=== PATIENT | female | born 1955 | race Caucasian/White ===

== ENCOUNTER → 2021-06-03 14:48 | Outpatient (CLI) | payer MEDICARE, OTHER, SELFPAY | PROVIDERS: Visit Provider Physician Assistant | DX: K04.7 Periapical abscess without sinus (principal) | CPT/HCPCS: 87070; 87075; 87076; 87077; 87186; 87205 ==

== ENCOUNTER → 2021-06-24 12:04 | Outpatient (CLI) | payer MEDICARE, OTHER, SELFPAY ==
[2021-06-24 18:43] LABS: Add Manual Diff / Slide Review NO; Basophils Absolute Auto 100 /uL (0-100); Basophils Percent Auto 0.7 % (0-2); Eosinophils Absolute Auto 200 /uL (0-450); Eosinophils Percent Auto 2.1 % (2-4); Hemoglobin 14.4 g/dL (12.0-16.0); Lymphocytes Absolute Auto 2900 /uL (1100-4500); Mean Corpuscular HGB Conc 32.7 % (30-36); Mean Corpuscular Hemoglobin 32.3 PG (26-34); Mean Corpuscular Volume 98.7 fL (80-100); Monocytes Absolute Auto 600 /uL (0-900); Monocytes Percent Auto 7.1 % (3-14); Neutrophils Absolute Auto 4500 /uL (1500-7000); Neutrophils Percent Auto 55.1 % (50-75); Platelet Count 275 X10^3/uL (150-400); Red Blood Cell Count 4.46 X10^6/uL (4.0-5.2); Red Cell Distribution Width 13.3 % (11.6-14.8); White Blood Cell Count 8.2 X10^3/uL (4.5-11.0)
[2021-06-24 18:53] LABS: HEMOLYSIS < 15 (0-50); Iron 110 ug/dL (37-170)
[2021-06-24 18:55] LABS: Alanine Aminotransferase 60 IU/L (<35); Albumin 4.1 g/dL (3.5-5.0); Albumin Globulin Ratio 1.6 (1.0-2.8); Alkaline Phosphatase 67 U/L (38-126); Aspartate Aminotransferase 49 IU/L (14-36); BUN Creatinine Ratio 25.5 (6-22); Bilirubin Total 0.5 mg/dL (0.2-1.3); Blood Urea Nitrogen 14 mg/dL (7-17); Calcium 10.5 mg/dL (8.4-10.2); Carbon Dioxide 27 mmol/L (22-32); Chloride 105 mmol/L (98-107); Estimated Glomerular Filt Rate > 60.0 mL/min (>60); Globulin 2.5 g/dL (1.7-4.1); Glucose 101 mg/dL (80-110); HEMOLYSIS < 15 (0-50); Potassium 4.2 mmol/L (3.4-5.1); Sodium 139 mmol/L (137-145); Total Protein 6.6 g/dL (6.3-8.2)
[2021-06-24 19:07] LABS: Vitamin D 25 Hydroxy (D3) 24.4 ng/mL (30.0-100.0)
[2021-06-24 19:09] LABS: Percent Iron Saturation 37 % (15-50); Total Iron Binding Capacity 297 ug/dL (265-497); Transferrin 270 mg/dL (206-381)
[2021-06-24 19:42] LABS: Vitamin B12 746 pg/mL (239-931)
== END ==
PROVIDERS: Visit Provider Physician Assistant
DX: R00.0 Tachycardia, unspecified (principal); R53.83 Other fatigue; E55.9 Vitamin D deficiency, unspecified
CPT/HCPCS: 80053; 82306; 82607; 83540; 83550; 84443; 85025

== ENCOUNTER → 2022-01-07 10:31 | Outpatient (CLI) | payer MEDICARE, OTHER, SELFPAY ==
[2022-01-07 18:49] LABS: Add Manual Diff / Slide Review NO; Basophils Absolute Auto 100 /uL (0-100); Basophils Percent Auto 0.7 % (0-2); Eosinophils Absolute Auto 100 /uL (0-450); Eosinophils Percent Auto 1.2 % (2-4); Hematocrit 45.8 % (36-46); Hemoglobin 15.4 g/dL (12.0-16.0); Lymphocytes Absolute Auto 1900 /uL (1100-4500); Lymphocytes Percent Auto 18.2 % (25-40); Mean Corpuscular HGB Conc 33.7 % (30-36); Mean Corpuscular Hemoglobin 32.1 PG (26-34); Mean Corpuscular Volume 95.3 fL (80-100); Monocytes Absolute Auto 600 /uL (0-900); Monocytes Percent Auto 6.2 % (3-14); Neutrophils Absolute Auto 7600 /uL (1500-7000); Neutrophils Percent Auto 73.7 % (50-75); Platelet Count 308 X10^3/uL (150-400); Red Blood Cell Count 4.81 X10^6/uL (4.0-5.2); Red Cell Distribution Width 13.1 % (11.6-14.8); White Blood Cell Count 10.3 X10^3/uL (4.5-11.0)
[2022-01-07 18:58] LABS: Alanine Aminotransferase 44 IU/L (<35); Albumin 4.7 g/dL (3.5-5.0); Albumin Globulin Ratio 1.7 (1.0-2.8); Alkaline Phosphatase 71 U/L (38-126); Aspartate Aminotransferase 36 IU/L (14-36); BUN Creatinine Ratio 24.6 (6-22); Bilirubin Total 0.6 mg/dL (0.2-1.3); Blood Urea Nitrogen 15 mg/dL (7-17); Calcium 10.4 mg/dL (8.4-10.2); Carbon Dioxide 29 mmol/L (22-32); Chloride 105 mmol/L (98-107); Cholesterol 188 mg/dL (140-199); Estimated Glomerular Filt Rate > 60.0 mL/min (>60); Gamma Glutamyl Transpeptidase 17 U/L (12-43); Globulin 2.8 g/dL (1.7-4.1); Glucose 115 mg/dL (80-110); HDL Cholesterol 92 mg/dL (40-60); HEMOLYSIS < 15 (0-50); LDL Cholesterol Calculated 75 mg/dL (<100); Potassium 4.4 mmol/L (3.4-5.1); Sodium 139 mmol/L (137-145); Total Protein 7.5 g/dL (6.3-8.2); Triglycerides 107 mg/dL (35-150)
[2022-01-07 20:09] LABS: Free T3, Triiodothyronine Free 3.38 pg/mL (2.77-5.27)
[2022-01-07 20:23] LABS: TSH w/ Reflex to FT4 1.47 uIU/mL (0.47-4.68)
[2022-01-08 08:36] LABS: Hemoglobin A1C% w Est Avg Glu 5.4 % (4.0-6.0)
== END ==
PROVIDERS: Visit Provider Physician Assistant Medical
DX: R00.0 Tachycardia, unspecified (principal); R74.8 Abnormal levels of other serum enzymes; I10 Essential (primary) hypertension
CPT/HCPCS: 80053; 80061; 82977; 83036; 84443; 84481; 85025

== ENCOUNTER → 2022-01-13 11:00 | Outpatient (CLI) | payer MEDICARE, OTHER, SELFPAY ==
[2022-01-13 20:51] LABS: Erythrocyte Sedimentation Rate 10 MM/HR (0-20)
[2022-01-13 20:53] LABS: C-Reactive Protein Quant < 0.5 mg/dL (<1.0)
== END ==
PROVIDERS: Visit Provider Physician Assistant Medical
DX: I10 Essential (primary) hypertension (principal); R51.9 Headache, unspecified; R74.8 Abnormal levels of other serum enzymes
CPT/HCPCS: 85651; 86140

== ENCOUNTER → 2022-01-16 11:36 | Outpatient (CLI) | payer MEDICARE, OTHER, SELFPAY ==
--- NOTE | 2022-01-16 11:38 | DI.CT.S_ITS ---
PROCEDURE: CT HEAD/BRAIN WO CON INDICATIONS: headache, fullness and dizziness TECHNIQUE: Noncontrast 4.5 mm thick angled axial sections acquired from the foramen magnum to the vertex, with coronal and sagittal reformats. For radiation dose reduction, the following was used: automated exposure control, adjustment of mA and/or kV according to patient size. COMPARISON: None. FINDINGS: Image quality: Excellent. CSF spaces: Basal cisterns are patent. No extra-axial fluid collections. Ventricles are normal in size and shape. Brain: No midline shift. No intracranial masses or hemorrhage. High-white matter interface is normal. Moderate cerebral and cerebellar volume loss with multifocal white matter chronic ischemic change noted. Skull and face: Calvarium and visualized facial bones are intact, without suspicious lesions. Sinuses: Visualized sinuses and mastoids are clear. Incidental pneumatization of the right petrous apex IMPRESSION: Mild atrophy and multifocal chronic ischemic change without intracranial hemorrhage or mass effect. Approved by: Wilton Dasilva M.D. on 01/16/2022 at 12:28
== END ==
PROVIDERS: Referring Provider Physician Assistant Medical; Visit Provider Physician Assistant Medical
DX: R51.9 Headache, unspecified (principal); R68.89 Other general symptoms and signs; R53.83 Other fatigue
CPT/HCPCS: 70450

== ENCOUNTER → 2022-12-24 13:05 | Outpatient (CLI) | payer MEDICARE, OTHER, SELFPAY ==
[2022-12-24 19:25] LABS: Add Manual Diff / Slide Review NO; Basophils Absolute Auto 0 /uL (0-100); Basophils Percent Auto 0.5 % (0-2); Eosinophils Absolute Auto 200 /uL (0-450); Hematocrit 42.3 % (36-46); Hemoglobin 14.2 g/dL (12.0-16.0); Lymphocytes Absolute Auto 2800 /uL (1100-4500); Lymphocytes Percent Auto 39.1 % (25-40); Mean Corpuscular HGB Conc 33.5 % (30-36); Mean Corpuscular Hemoglobin 31.8 PG (26-34); Mean Corpuscular Volume 94.8 fL (80-100); Monocytes Absolute Auto 600 /uL (0-900); Neutrophils Absolute Auto 3500 /uL (1500-7000); Neutrophils Percent Auto 49.4 % (50-75); Platelet Count 270 X10^3/uL (150-400); Red Blood Cell Count 4.46 X10^6/uL (4.0-5.2); Red Cell Distribution Width 12.8 % (11.6-14.8); White Blood Cell Count 7.1 X10^3/uL (4.5-11.0)
[2022-12-24 19:42] LABS: Alanine Aminotransferase 27 IU/L (<35); Albumin 3.9 g/dL (3.5-5.0); Albumin Globulin Ratio 1.4 (1.0-2.8); Alkaline Phosphatase 72 U/L (38-126); Aspartate Aminotransferase 27 IU/L (14-36); BUN Creatinine Ratio 22.8 (6-22); Bilirubin Total 0.6 mg/dL (0.2-1.3); Blood Urea Nitrogen 13 mg/dL (7-17); Calcium 9.7 mg/dL (8.4-10.2); Carbon Dioxide 27 mmol/L (22-32); Chloride 102 mmol/L (98-107); Estimated Glomerular Filt Rate > 60 mL/min (>60); Globulin 2.8 g/dL (1.7-4.1); Glucose 87 mg/dL (80-110); HEMOLYSIS < 15 (0-50); Potassium 3.8 mmol/L (3.4-5.1); Sodium 139 mmol/L (137-145); Total Protein 6.7 g/dL (6.3-8.2)
[2022-12-25 05:31] LABS: Thyroid Stimulating Hormone 1.31 uIU/mL (0.47-4.68)
[2022-12-25 07:32] LABS: Free T4, Direct Thyroxine 1.46 ng/dL (0.78-2.19)
[2022-12-26 10:20] LABS: Calcium 9.6 mg/dL (8.7-10.3); Parathyroid Hormone, Intact 42 pg/mL (15-65)
== END ==
PROVIDERS: PCP Physician Assistant; Visit Provider Physician Assistant
DX: C43.9 Malignant melanoma of skin, unspecified (principal); R00.0 Tachycardia, unspecified; E83.52 Hypercalcemia; R74.8 Abnormal levels of other serum enzymes; Z53.20 Procedure and treatment not carried out because of patient's decision for unspecified reasons
CPT/HCPCS: 80053; 82310; 83970; 84439; 84443; 85025

== ENCOUNTER → 2023-01-05 11:44 | Outpatient (CLI) | payer MEDICARE, OTHER, SELFPAY ==
--- NOTE | 2023-01-05 11:46 | DI.MG.S_ITS ---
BILATERAL DIGITAL SCREENING MAMMOGRAM 3D/2D WITH CAD: 01/05/2023 CLINICAL: Routine screening. Family history of breast cancer. Comparison is made to exam dated: 02/16/2008 mammogram - [facility]. Both breasts are heterogeneously dense, which may obscure small masses (category c / 51-75% glandular tissue). Current study was also evaluated with a Computer Aided Detection (CAD) system. No significant masses, calcifications, or other findings are seen in either breast. There has been no significant interval change. IMPRESSION: NEGATIVE There is no mammographic evidence of malignancy. A 1 year screening mammogram is recommended. Based on the Tyrer Cuzick model (a risk assessment model) the patient's lifetime risk is 10.0% and her 10 year risk is 5.6%. According to the ACR, ACS, and NCCN guidelines, an annual breast MRI exam along with mammogram is recommended if the patient's lifetime risk is 20% or greater. This exam was interpreted at Station ID: [id number]. NOTE: For mammograms, a report in lay terms will be sent to the patient. Approximately 15% of breast malignancies will not be visualized mammographically. In the management of a palpable breast mass, a negative mammogram must not discourage biopsy of a clinically suspicious lesion. Electronically Signed By: Elis núñez/natali:01/05/2023 12:53:09 letter sent: Normal Exam ACR BI-RADS Category 1: Negative [id number]
== END ==
PROVIDERS: PCP Physician Assistant; Referring Provider Physician Assistant; Visit Provider Physician Assistant
DX: Z12.31 Encounter for screening mammogram for malignant neoplasm of breast (principal); Z13.820 Encounter for screening for osteoporosis; M85.851 Other specified disorders of bone density and structure, right thigh; Z78.0 Asymptomatic menopausal state; Z80.3 Family history of malignant neoplasm of breast; E83.52 Hypercalcemia
CPT/HCPCS: 77063; 77067; 77080

== ENCOUNTER → 2023-01-07 10:31 | Outpatient (CLI) | payer MEDICARE, OTHER, SELFPAY ==
[2023-01-07 20:13] LABS: Cholesterol 269 mg/dL (140-199); HDL Cholesterol 83 mg/dL (40-60); LDL Cholesterol Calculated 158 mg/dL (<100); Triglycerides 139 mg/dL (35-150)
== END ==
PROVIDERS: PCP Physician Assistant; Visit Provider Physician Assistant
DX: I10 Essential (primary) hypertension (principal); E83.52 Hypercalcemia; R74.8 Abnormal levels of other serum enzymes; Z53.20 Procedure and treatment not carried out because of patient's decision for unspecified reasons
CPT/HCPCS: 80061

== ENCOUNTER → 2023-04-21 08:56 | Outpatient (CLI) | payer MEDICARE, OTHER, SELFPAY ==
[2023-04-21 19:52] LABS: Cholesterol 171 mg/dL (140-199); HDL Cholesterol 85 mg/dL (40-60); LDL Cholesterol Calculated 72 mg/dL (<100); Triglycerides 71 mg/dL (35-150)
== END ==
PROVIDERS: PCP Physician Assistant; Visit Provider Physician Assistant
DX: E78.5 Hyperlipidemia, unspecified (principal); M85.80 Other specified disorders of bone density and structure, unspecified site
CPT/HCPCS: 80061

== ENCOUNTER → 2023-09-07 11:25 | Outpatient (CLI) | payer MEDICARE, OTHER, SELFPAY ==
[2023-09-07 19:28] LABS: Add Manual Diff / Slide Review NO; Basophils Absolute Auto 0 /uL (0-100); Basophils Percent Auto 0.6 % (0-2); Eosinophils Absolute Auto 100 /uL (0-450); Eosinophils Percent Auto 2.1 % (2-4); Hematocrit 41.6 % (36-46); Hemoglobin 14.3 g/dL (12.0-16.0); Lymphocytes Absolute Auto 2500 /uL (1100-4500); Lymphocytes Percent Auto 34.5 % (25-40); Mean Corpuscular HGB Conc 34.4 % (30-36); Mean Corpuscular Hemoglobin 32.8 PG (26-34); Mean Corpuscular Volume 95.3 fL (80-100); Monocytes Absolute Auto 500 /uL (0-900); Monocytes Percent Auto 6.9 % (3-14); Neutrophils Absolute Auto 4000 /uL (1500-7000); Neutrophils Percent Auto 55.9 % (50-75); Platelet Count 248 X10^3/uL (150-400); Red Blood Cell Count 4.37 X10^6/uL (4.0-5.2); Red Cell Distribution Width 13.5 % (11.6-14.8); White Blood Cell Count 7.1 X10^3/uL (4.5-11.0)
[2023-09-07 19:29] LABS: Alanine Aminotransferase 70 IU/L (<35); Albumin 4.3 g/dL (3.5-5.0); Albumin Globulin Ratio 1.7 (1.0-2.8); Alkaline Phosphatase 61 U/L (38-126); Aspartate Aminotransferase 49 IU/L (14-36); Bilirubin Total 0.5 mg/dL (0.2-1.3); Bilirubin Unconjugated 0.4 mg/dL (0.0-1.1); Globulin 2.6 g/dL (1.7-4.1); HEMOLYSIS < 15 (0-50); Total Protein 6.9 g/dL (6.3-8.2)
[2023-09-07 20:35] LABS: Folate > 20.0 ng/mL (2.76-20.0); Vitamin B12 828 pg/mL (239-931)
== END ==
PROVIDERS: PCP Family Medicine; Visit Provider Family Medicine
DX: R42 Dizziness and giddiness (principal); R20.0 Anesthesia of skin; Z78.9 Other specified health status
CPT/HCPCS: 80076; 82607; 82746; 85025; 85610

== ENCOUNTER 2023-11-04 13:53 | Emergency (ER) | payer MEDICARE, OTHER, SELFPAY ==
[2023-11-04 13:58] VITALS: BP 126/64; PULSE 78; RESP 14; TEMP 36.8; O2SAT 98; BMI 24.0
--- NOTE | 2023-11-04 15:54 | ED.SKABFB ---
HPI - Skin/Abscess/Foreign Bdy <Funmilayo Metzger PA-C - Last Filed: 11/04/23 15:59> General Chief complaint: Skin/Abscess/Foreign Body Stated complaint: foreign object in rt ear Time Seen by Provider: 11/04/23 14:21 Source: patient Mode of arrival: Ambulatory History of Present Illness HPI narrative: Patient is a 68-year-old female who presents due to concern for foreign body in her right ear. She reports yesterday morning she was using a Q-tip, not deep inside the ear, when she pulled it out she noticed the cotton at the end of the Q-tip was gone. She went to the clinic on [facility] where they attempted to irrigate the ear but did not get any foreign body return. She presents today due to continued foreign body sensation in the right ear. She is shared the Q-tip is in there. She denies any fever or drainage from the ear. Related Data Previous Rx's Medication Instructions Recorded atorvastatin 10 mg tablet 10 mg PO DAILY #30 tabs 01/15/23 diazepam 10 mg tablet 10 mg PO DAILY PRN anxiety 180 06/21/23 days #10 tabs propranolol 20 mg tablet See Rx Instructions PO .Qd PRN 06/22/23 palpitations #30 tabs gabapentin 100 mg capsule 100 mg PO TID PRN Facial numbness 09/21/23 #180 caps amlodipine 2.5 mg tablet 2.5 mg PO DAILY take every day for 10/25/23 blood pressure even if BP is no #90 tabs Allergies Allergy/AdvReac Type Severity Reaction Status Date / Time No Known Drug Allergies Allergy Verified 09/10/23 14:35 Review of Systems <Funmilayo Metzger PA-C - Last Filed: 11/04/23 15:59> Review of Systems ROS Unobtainable: All systems reviewed & are unremarkable except as noted in HPI and below Patient History <Funmilayo Metzger PA-C - Last Filed: 11/04/23 15:59> Medical History Alcohol use Cervical stenosis of spinal canal Abnormal brain MRI Palpitations Osteoporosis screening Hypercalcemia Statin declined Skin cancer screening Social History Smoking Status: Never smoker Smoking Status: Never smoker alcohol intake frequency: 0-2 drinks per day Substance Use Type: marijuana Exam <ДМИТРИЙ Juares Last Filed: 11/04/23 15:59> Narrative Exam Narrative: GENERAL: 68 year old patient appears stated age. Well-developed patient, in no distress. NEURO: AOx3. HEAD: Atraumatic. Normocephalic. EYES: Pupils equal round and reactive. Extraocular motions intact. No scleral icterus. No injection or drainage. ENT: Nose without bleeding or purulent drainage. Right TM intact, pearly burnett, trace dried flaky skin, questionable small white area along the anterior edge, deep in the ear. Throat without erythema, tonsillar hypertrophy or exudate. Airway patent. RESPIRATORY: No distress. EXTREMITIES: No edema or joint tenderness. SKIN: No rash or erythema of visible areas Initial Vital Signs Initial Vital Signs: Vital Signs Temperature 98.2 F 11/04/23 13:58 Pulse Rate 78 11/04/23 13:58 Respiratory Rate 14 11/04/23 13:58 Blood Pressure 126/64 11/04/23 13:58 Pulse Oximetry 98 11/04/23 13:58 Oxygen Delivery Method Room Air 11/04/23 13:58 <Gustavo Mcgowan DO - Last Filed: 11/04/23 17:26> Initial Vital Signs Initial Vital Signs: Vital Signs Temperature 98.2 F 11/04/23 13:58 Pulse Rate 78 11/04/23 13:58 Respiratory Rate 14 11/04/23 13:58 Blood Pressure 126/64 11/04/23 13:58 Pulse Oximetry 98 11/04/23 13:58 Oxygen Delivery Method Room Air 11/04/23 13:58 Course <Funmilayo Metzger PA-C - Last Filed: 11/04/23 15:59> Vital Signs Vital signs: Vital Signs - 8 hr 11/04/23 13:58 Temperature 98.2 F Pulse Rate 78 Respiratory Rate 14 Blood Pressure 126/64 Pulse Oximetry 98 Oxygen Delivery Method Room Air <Gustavo Mcgowan DO - Last Filed: 11/04/23 17:26> Vital Signs Vital signs: Vital Signs - 8 hr 11/04/23 13:58 Temperature 98.2 F Pulse Rate 78 Respiratory Rate 14 Blood Pressure 126/64 Pulse Oximetry 98 Oxygen Delivery Method Room Air MDM - Skin/Abscess/Foreign Bdy <Funmilayo Metzger PA-C - Last Filed: 11/04/23 15:59> MDM Narrative Medical decision making narrative: Multiple etiologies for patient's symptoms considered including, but not limited to: Foreign body in right ear, foreign body sensation without retained foreign body, ear infection, otitis externa I asked Dr. Mcgowan to come and assess the patient's ear as well; he does not see any evidence of foreign body and questions if the white area is foreign body or just skin tissue, either way it was too deep for us to retrieve with the tools we have. Described this to the patient and her . Advised that they follow up with ENT if they wanted definitive diagnosis or if the sensation continues. I discussed that sometimes you can continue to have a strange sensation in your ear when it has been irritated and inflamed, such as after the irrigation use clinic and then multiple exams today. There is no evidence of acute otitis media or otitis externa. The TM is intact. There is no external swelling or erythema. Patient's symptoms improved over duration of stay with above-stated therapies. Findings and discharge diagnosis discussed with patient/family followed by verbalization of understanding Return precautions discussed with patient/family whom verbalize understanding of diagnosis and plan Discharge Plan Departure Patient Disposition: Home Clinical Impression: Foreign body in right ear Qualifiers: Encounter type: initial encounter Qualified Code(s): T16.1XXA - Foreign body in right ear, initial encounter Instructions: DI for Removal of Foreign Body From Ear Activity Restrictions/Additional Instructions: * we were unable to identify a foreign body in your right ear. We would recommend he follow up with the ear nose and throat doctor if you continue to have this sensation that there is something in your ear as they can use their more specialized equipment to look. Their contact information is noted below. It is worth calling today as sometimes they have last minute openings they can fit you in 2. *What to do: *Please continue to take your regular medications as directed. [ ] New medication prescriptions sent to your pharmacy: [ ] [ ] New medication written as a paper prescription [x ] No new medications given *Please follow up with your primary care provider in 2-3 days, call for an appointment. Let them know you were seen in the Emergency Department and that we ask that you be seen in follow up. We will electronically transmit a record of today's note if your PCP is in our system *If you do not have a primary care provider please contact the [facility] Resource line at [phone]. They will ask some questions about your medical history and help get you set up with a doctor in the community. *Return to Emergency Department if you should have any new, worsening or concerning symptoms, such as [fever greater than 101 F, shaking chills, worsening pain, persistent vomiting or other concerning symptoms]. Prescriptions: No Action diazepam 10 mg tablet 10 mg PO DAILY PRN (Reason: anxiety) 180 Days Qty: 10 0RF propranolol 20 mg tablet See Rx Instructions PO .Qd PRN (Reason: palpitations) Qty: 30 3RF Rx Instructions: 1/2 or 1 whole tablet orally QD PRN; gabapentin 100 mg capsule 100 mg PO TID PRN (Reason: Facial numbness) Qty: 180 6RF amlodipine 2.5 mg tablet 2.5 mg PO DAILY Qty: 90 1RF atorvastatin 10 mg tablet 10 mg PO DAILY Qty: 30 11RF Referrals: rEos Eaton MD [Physician] - Regi Salgaod MD [Primary Care Provider] - Stand Alone Forms: Patient Portal/API ED Sign-out <Gusatvo Mcgowan, - Last Filed: 11/04/23 17:26> [facility]: Dr Mcgowan Co-Sign Statement: I was available for consultation during this patient's emergency department visit. This chart is signed by myself for administrative purposes only. I did not have direct contact with this patient during this visit. They were seen independently by the [facility].
== END 2023-11-04 15:21 | disposition home or self-care (01) ==
PROVIDERS: Emergency Provider Physician Assistant; PCP Family Medicine
DX: T16.1XXA Foreign body in right ear, initial encounter (principal)
CPT/HCPCS: 99281

== ENCOUNTER → 2023-12-06 13:01 | Outpatient (CLI) | payer MEDICARE, OTHER, SELFPAY ==
[2023-12-06 20:28] LABS: Alanine Aminotransferase 46 IU/L (<35); Albumin 4.2 g/dL (3.5-5.0); Albumin Globulin Ratio 1.7 (1.0-2.8); Alkaline Phosphatase 54 U/L (38-126); Aspartate Aminotransferase 36 IU/L (14-36); BUN Creatinine Ratio 28.8 (6-22); Bilirubin Total 0.7 mg/dL (0.2-1.3); Blood Urea Nitrogen 15 mg/dL (7-17); Calcium 10.2 mg/dL (8.4-10.2); Carbon Dioxide 26 mmol/L (22-32); Chloride 103 mmol/L (98-107); Estimated Glomerular Filt Rate > 60 mL/min (>60); Globulin 2.5 g/dL (1.7-4.1); Glucose 100 mg/dL (80-110); HEMOLYSIS < 15 (0-50); Potassium 3.9 mmol/L (3.4-5.1); Sodium 137 mmol/L (137-145); Total Protein 6.7 g/dL (6.3-8.2)
[2023-12-06 20:53] LABS: Ferritin 40 ng/mL (11-264)
[2023-12-06 23:55] LABS: HEMOLYSIS < 15 (0-50); Total Iron Binding Capacity 333 ug/dL (265-497)
[2023-12-07 06:41] LABS: Iron 116 ug/dL (37-170); Percent Iron Saturation 35 % (15-50); Transferrin 312 mg/dL (206-381)
[2023-12-08 03:07] LABS: HBsAg Screen Negative (Negative); Hepatitis A Antibody IgM Negative (Negative); Hepatitis B Core Antibody IgM Negative (Negative); Hepatitis C Antibody Non Reactive (Non Reactive)
[2023-12-09 06:37] LABS: Hepatitis B Surf Ab Qualitativ Non Reactive (.)
[2023-12-09 18:09] LABS: ANA Screen, IFA Negative (.)
== END ==
PROVIDERS: PCP Family Medicine; Visit Provider Family Medicine
DX: R74.01 Elevation of levels of liver transaminase levels (principal)
CPT/HCPCS: 80053; 80074; 82728; 83540; 83550; 86038; 86706

== ENCOUNTER → 2023-12-24 10:34 | Outpatient (CLI) | payer MEDICARE, OTHER, SELFPAY ==
--- NOTE | 2023-12-24 10:36 | DI.US.S_ITS ---
PROCEDURE: US ABDOMEN LIMITED INDICATIONS: ELEVATED LFTS TECHNIQUE: Real-time focused scanning was performed of the abdomen, with image documentation. COMPARISON: None. FINDINGS: The liver is normal in size and demonstrates no suspicious lesions. No findings of gallstones or sludge are seen. The gallbladder wall is not thickened, measuring 3 mm or less. No specific pericholecystic fluid is seen. The sonographic Billings sign is negative. There is no biliary dilatation, the common bile duct measures 4 mm. No significant pancreatic abnormality is seen on these images. IMPRESSION: Normal liver by ultrasound. The gallbladder demonstrates a normal sonographic appearance. No biliary dilatation is seen. Dictated by: Jadiel Phillip M.D. on 12/24/2023 at 17:12 Approved by: Jadiel Phillip M.D. on 12/24/2023 at 17:12
== END ==
PROVIDERS: PCP Family Medicine; Referring Provider Family Medicine; Visit Provider Family Medicine
DX: R74.01 Elevation of levels of liver transaminase levels (principal)
CPT/HCPCS: 76705

== ENCOUNTER → 2024-11-21 10:51 | Outpatient (CLI) | payer MEDICARE, OTHER, SELFPAY ==
--- NOTE | 2024-11-21 10:52 | DI.MG.S_ITS ---
BILATERAL DIGITAL SCREENING MAMMOGRAM 3D/2D WITH CAD: 11/21/2024 CLINICAL: Routine screening. Family history of breast cancer. Comparison is made to exam dated: 01/05/2023 mammogram - [facility]. The breasts are heterogeneously dense, which may obscure small masses (category c / 51-75% glandular tissue). Current study was also evaluated with a Computer Aided Detection (CAD) system. No significant masses, calcifications, or other findings are seen in either breast. There has been no significant interval change. IMPRESSION: NEGATIVE There is no mammographic evidence of malignancy. A 1 year screening mammogram is recommended. Based on the Tyrer Cuzick model (a risk assessment model) the patient's lifetime risk is 8.9% and her 10 year risk is 5.7%. According to the ACR, ACS, and NCCN guidelines, an annual breast MRI exam along with mammogram is recommended if the patient's lifetime risk is 20% or greater. This exam was interpreted at Station ID: [id number]. NOTE: For mammograms, a report in lay terms will be sent to the patient. Approximately 15% of breast malignancies will not be visualized mammographically. In the management of a palpable breast mass, a negative mammogram must not discourage biopsy of a clinically suspicious lesion. Electronically Signed By: Claude matamoros/natali:11/21/2024 15:31:03 letter sent: Normal Exam ACR BI-RADS Category 1: Negative
== END ==
PROVIDERS: PCP Family Medicine; Referring Provider Family Medicine; Visit Provider Family Medicine
DX: Z12.31 Encounter for screening mammogram for malignant neoplasm of breast (principal); Z80.3 Family history of malignant neoplasm of breast; R92.333 Mammographic heterogeneous density, bilateral breasts
CPT/HCPCS: 77063; 77067

== ENCOUNTER → 2024-11-23 09:06 | Outpatient (CLI) | payer MEDICARE, OTHER, SELFPAY ==
[2024-11-23 20:20] LABS: Add Manual Diff / Slide Review NO; Basophils Absolute Auto 0 /uL (0-100); Basophils Percent Auto 0.3 % (0-2); Eosinophils Absolute Auto 300 /uL (0-450); Eosinophils Percent Auto 3.5 % (2-4); Hematocrit 44.2 % (36-46); Hemoglobin 14.9 g/dL (12.0-16.0); Lymphocytes Absolute Auto 2500 /uL (1100-4500); Lymphocytes Percent Auto 33.7 % (25-40); Mean Corpuscular HGB Conc 33.8 % (30-36); Mean Corpuscular Hemoglobin 33.7 PG (26-34); Mean Corpuscular Volume 99.6 fL (80-100); Monocytes Absolute Auto 600 /uL (0-900); Monocytes Percent Auto 7.5 % (3-14); Neutrophils Absolute Auto 4000 /uL (1500-7000); Platelet Count 268 X10^3/uL (150-400); Red Blood Cell Count 4.43 X10^6/uL (4.0-5.2); Red Cell Distribution Width 13.6 % (11.6-14.8); White Blood Cell Count 7.4 X10^3/uL (4.5-11.0)
[2024-11-23 20:39] LABS: Alanine Aminotransferase 51 IU/L (<35); Albumin 4.3 g/dL (3.5-5.0); Albumin Globulin Ratio 1.8 (1.0-2.8); Alkaline Phosphatase 70 U/L (38-126); Aspartate Aminotransferase 45 IU/L (14-36); Bilirubin Total 0.7 mg/dL (0.2-1.3); Blood Urea Nitrogen 14 mg/dL (7-17); Calcium 10.3 mg/dL (8.4-10.2); Carbon Dioxide 31 mmol/L (22-32); Chloride 103 mmol/L (98-107); Cholesterol 223 mg/dL (140-199); Estimated Glomerular Filt Rate > 60 mL/min (>60); Gamma Glutamyl Transpeptidase 18 U/L (12-43); Globulin 2.4 g/dL (1.7-4.1); Glucose 106 mg/dL (80-110); HEMOLYSIS < 15 (0-50); Potassium 4.2 mmol/L (3.4-5.1); Sodium 138 mmol/L (137-145); Total Protein 6.7 g/dL (6.3-8.2); Triglycerides 106 mg/dL (35-150)
[2024-11-23 20:46] LABS: HDL Cholesterol 106 mg/dL (40-60); LDL Cholesterol Calculated 96 mg/dL (<100)
== END ==
PROVIDERS: PCP Family Medicine; Visit Provider Family Medicine
DX: E78.5 Hyperlipidemia, unspecified (principal); I10 Essential (primary) hypertension; R74.01 Elevation of levels of liver transaminase levels
CPT/HCPCS: 80053; 80061; 82977; 85025

== ENCOUNTER → 2025-05-29 12:11 | Outpatient (CLI) | payer MEDICARE, OTHER, SELFPAY ==
--- NOTE | 2025-05-29 12:13 | DI.MRI.S_ITS ---
PROCEDURE: MR HEAD/BRAIN WO/W CON INDICATIONS: dizziness, R sided head pain, abnl densities in brain 2022 TECHNIQUE: Noncontrast axial T1 spin echo, axial T2 fast spin echo, sagittal and axial FLAIR, coronal T2 fast spin echo, axial gradient echo, axial diffusion and ADC through the brain. After the administration of contrast, axial and coronal and sagittal T1 spin echo with fat saturation through the brain. COMPARISON: [facility], CT, CT HEAD/BRAIN WO CON, 01/16/2022, 11:41. FINDINGS: Image quality: Excellent. CSF spaces: Basal cisterns are patent. No extra-axial fluid collections. Ventricles are normal in size and shape. Brain: No midline shift. No intracranial bleeds or masses. No abnormal intracranial enhancement. There is cerebral volume loss for age. Multifocal T2 hyperintense lesions can be seen, which are primarily present within the periventricular and deep white matter, although a few peripheral lesions are also seen. The brainstem appears normal. Diffusion-weighted images demonstrate no acute infarct. No chronic ischemic insults. Normal intravascular flow voids are present. Skull and face: Calvarial marrow is normal in signal. Orbits appear normal. Sinuses: Sinuses and mastoids appear clear. IMPRESSION: No masses or abnormal enhancement can be seen. No findings of acute or subacute infarction can be seen. No prior territorial infarct can be seen. There is a moderate burden of T2 weighted hyperintense lesions within the periventricular deep white matter, with a few peripheral lesions. In a patient of this age, these are statistically most likely related to chronic small vessel ischemic change, although differential diagnosis includes multiple sclerosis. Please note that no brain studies from 2022 are available for review at the time of this dictation. If outside studies are presented for correlation, comparison will be made and addendum issued to this report. Dictated by: Jadiel Phillip M.D. on 05/29/2025 at 11:57 Approved by: Jadiel Phillip M.D. on 05/29/2025 at 12:01
== END ==
PROVIDERS: PCP Family Medicine; Referring Provider Family Medicine; Visit Provider Family Medicine
DX: C43.9 Malignant melanoma of skin, unspecified (principal); R90.89 Other abnormal findings on diagnostic imaging of central nervous system; R42 Dizziness and giddiness
CPT/HCPCS: 70553; A9579

== ENCOUNTER → 2025-06-11 13:01 | Outpatient (CLI) | payer MEDICARE, OTHER, SELFPAY ==
[2025-06-11 19:10] LABS: Alanine Aminotransferase 57 IU/L (<35); Albumin 4.5 g/dL (3.5-5.0); Albumin Globulin Ratio 2.0 (1.0-2.8); Alkaline Phosphatase 79 U/L (38-126); Blood Urea Nitrogen 10 mg/dL (7-17); Calcium 10.0 mg/dL (8.4-10.2); Carbon Dioxide 26 mmol/L (22-32); Chloride 105 mmol/L (98-107); Estimated Glomerular Filt Rate > 60 mL/min (>60); Globulin 2.3 g/dL (1.7-4.1); Glucose 127 mg/dL (70-99); HEMOLYSIS 17 (0-50); Phosphorous 2.3 mg/dL (2.8-4.1); Potassium 3.7 mmol/L (3.4-5.1); Sodium 139 mmol/L (137-145); Total Protein 6.8 g/dL (6.3-8.2)
[2025-06-13 16:38] LABS: Free Kappa Lt Chains, Serum 9.2 mg/L (3.3-19.4); Free Lambda Lt Chains,Serum 8.1 mg/L (5.7-26.3)
[2025-06-14 07:09] LABS: Calcium 9.7 mg/dL (8.7-10.3); Parathyroid Hormone, Intact 46 pg/mL (15-65)
[2025-06-14 13:36] LABS: Immunoglobulin G,Serum 750 mg/dL (586-1602)
[2025-06-14 15:10] LABS: Albumin 4.0 g/dL (2.9-4.4); Alpha-1-Globulin 0.2 g/dL (0.0-0.4); Alpha-2-Globulin 0.7 g/dL (0.4-1.0); Gamma Globulin 0.7 g/dL (0.4-1.8)
== END ==
PROVIDERS: PCP Family Medicine; Visit Provider Family Medicine
DX: Z01.812 Encounter for preprocedural laboratory examination (principal); R74.8 Abnormal levels of other serum enzymes; E83.52 Hypercalcemia; I10 Essential (primary) hypertension; R74.01 Elevation of levels of liver transaminase levels
CPT/HCPCS: 80069; 80076; 82310; 82784; 83883; 83970; 84155; 84165; 86334